=== PATIENT | female | born 1995 | race American Indian/Alaskan Native ===

== ENCOUNTER 2024-05-09 17:20 | Emergency (ER) | payer SELFPAY | END 2024-05-09 18:09 | disposition home or self-care (01) | LOC: ERS 17:20 | DX: O99.613 Diseases of the digestive system complicating pregnancy, third trimester (principal); K08.89 Other specified disorders of teeth and supporting structures; Z3A.30 30 weeks gestation of pregnancy | CPT/HCPCS: 99282 ==